=== PATIENT | male | born 1955 | race African-American/Black ===

== ENCOUNTER 2020-12-29 16:32 | Inpatient (IN) | payer BC, MEDICARE ==
[~2020-12-29] VITALS: Ht 167.6 cm; Wt 67.6 kg
[2020-12-29 18:35] LABS: HEMATOCRIT. 38.6 % (42.0-52.0); MEAN CORPUSCULAR HEMOGLOBIN 27.9 pg (28.0-32.0); MEAN CORPUSCULAR VOLUME 82.5 fL (80.0-94.0); MEAN PLATELET VOLUME 9.3 fl (7.4-10.4); PLATELET 146 x1000/uL (130-400); RED BLOOD CELL COUNT 4.68 mill/uL (4.7-6.1); RED CELL DISTRIBUTION WIDTH 14.7 % (11.6-14.6)
[2020-12-29 18:40] LABS: CLARITY URINE CLEAR (CLEAR); COLOR URINE YELLOW (YELLOW); KETONES URINE NEGATIVE (NEGATIVE); LEUKOCYTE ESTERASE URINE NEGATIVE (NEGATIVE); NITRITE URINE NEGATIVE (NEGATIVE); OCCULT BLOOD URINE 2+ (NEGATIVE); PH URINE 5.5 (4.5-8.0); PROTEIN URINE 1+ (NEGATIVE); SPECIFIC GRAVITY URINE 1.017 (1.005-1.030)
[2020-12-29 18:43] LABS: CHLORIDE 105 mEq/L (98-107)
[2020-12-29 18:47] LABS: ETHANOL BLOOD < 10 mg/dL
[2020-12-29 18:53] LABS: *AMPHETAMINES SCREEN URINE NEGATIVE (NEGATIVE); *BENZODIAZEPINES SCREEN URINE NEGATIVE (NEGATIVE); *COCAINE SCREEN URINE NEGATIVE (NEGATIVE); METHADONE URINE SCREEN NEGATIVE (NEGATIVE); OPIATES URINE SCREEN NEGATIVE (NEGATIVE); PHENCYCLIDINE URINE SCREEN NEGATIVE (NEGATIVE)
[2020-12-29 19:04] LABS: CANNABINOID URINE SCREEN NEGATIVE (NEGATIVE)
[2020-12-29 19:05] LABS: *BARBITURATES SCREEN URINE NEGATIVE (NEGATIVE)
[2020-12-29] MEDS ORDERED: AZITHROMYCIN 500 MG in DEXT 5% WATER 250 ML IV ONE (20:00)
[2020-12-29] MEDS ORDERED: CEFTRIAXONE 1 G PREMIX 50 ML IV ONE (20:00)
[2020-12-29 20:49] LABS: PLATELET ESTIMATE NORMAL
[2020-12-30] MEDS: HYDRALAZINE 20MG/ML VIAL IV PRN ×2 (00:46→06:17)
[2020-12-30 06:10] VITALS: BP 187/97
[2020-12-30 07:59] VITALS: BP 139/72
[2020-12-30] MEDS ORDERED: AMLODIPINE 5MG TABLET PO NR (09:15)
[2020-12-30] MEDS ORDERED: CEFTRIAXONE 1 G PREMIX 50 ML IV SCH (09:15)
[2020-12-30] MEDS: ENOXAPARIN 40MG/0.4ML SYR SUBCUT SCH (10:20)
[2020-12-30 11:10] VITALS: BP 159/84
[2020-12-30] MEDS: CEFTRIAXONE 1,000 MG in DEXTROSE 5% WATER 50 ML IV SCH (15:39)
[2020-12-30] MEDS: AZITHROMYCIN 500 MG in DEXT 5% WATER 250 ML IV SCH (15:39)
[2020-12-30 15:45] VITALS: BP 139/79
[2020-12-30 20:00] VITALS: BP 171/99
[2020-12-30] MEDS: AMLODIPINE 10MG TABLET PO SCH (22:47)
[2020-12-30] MEDS: LISINOPRIL 10MG TABLET PO SCH (22:47)
[2020-12-30] MEDS: ACETAMINOPHEN 650MG/20.3ML UDC PO PRN (22:49)
[2020-12-31] VITALS: BP 132/68
[2020-12-31 04:30] VITALS: BP 145/87
[2020-12-31 08:00] VITALS: BP 151/83
[2020-12-31] MEDS: LISINOPRIL 10MG TABLET PO SCH (09:18)
[2020-12-31] MEDS: AMLODIPINE 10MG TABLET PO SCH (09:18)
[2020-12-31] MEDS: ENOXAPARIN 40MG/0.4ML SYR SUBCUT SCH (09:19)
[2020-12-31 12:17] VITALS: BP 147/72
[2020-12-31] MEDS: CEFTRIAXONE 1,000 MG in DEXTROSE 5% WATER 50 ML IV SCH (13:55)
[2020-12-31] MEDS: AZITHROMYCIN 500 MG in DEXT 5% WATER 250 ML IV SCH (13:55)
[2020-12-31 16:00] VITALS: BP 173/102
[2020-12-31] MEDS: ACETAMINOPHEN 650MG/20.3ML UDC PO PRN (16:32)
[2020-12-31 17:44] LABS: BASOPHILS % 0.5 % (0.0-2.0); HEMATOCRIT. 42.6 % (42.0-52.0); HEMOGLOBIN. 14.3 g/dL (14.0-18.0); LYMPHOCYTES % 42.6 % (20.0-50.0); MEAN CORPUSCULAR HEMOGLOBIN 27.9 pg (28.0-32.0); MEAN CORPUSCULAR VOLUME 82.8 fL (80.0-94.0); MONOCYTES % 10.4 % (2.0-8.0); NEUTROPHILS % 43.5 % (40.0-76.0); PLATELET 142 x1000/uL (130-400); RED BLOOD CELL COUNT 5.14 mill/uL (4.7-6.1)
[2020-12-31] MEDS ORDERED: GADOTERATE MEGLUMINE 5 MMOL/10 ML VIAL IV ONE (17:51)
[2020-12-31 18:03] LABS: CHLORIDE 106 mEq/L (98-107)
[2020-12-31] MEDS: HYDROCHLOROTHIAZIDE 25MG TABLET PO SCH (18:46)
[2020-12-31 20:00] VITALS: BP 155/83
[2020-12-31] MEDS ORDERED: DIATR MEGLU/DIATRIZOATE SOLN 30ML PO SCH (22:45)
[2021-01-01] VITALS (12 sets, daily range): BP systolic 119–183; BP diastolic 59–96
[2021-01-01] MEDS: ACETAMINOPHEN 650MG/20.3ML UDC PO PRN (08:58)
[2021-01-01] MEDS: AZITHROMYCIN 500 MG TABLET PO SCH (08:59)
[2021-01-01] MEDS: LISINOPRIL 10MG TABLET PO SCH (08:59)
[2021-01-01] MEDS: SODIUM CHLORIDE 0.9% 1,000 ML IV SCH ×2 (08:59→17:45)
[2021-01-01] MEDS: AMLODIPINE 10MG TABLET PO SCH (08:59)
[2021-01-01] MEDS: HYDROCHLOROTHIAZIDE 25MG TABLET PO SCH (08:59)
[2021-01-01 09:16] LABS: HEMATOCRIT. 44.1 % (42.0-52.0); HEMOGLOBIN. 14.6 g/dL (14.0-18.0); MEAN CORPUSCULAR HEMOGLOBIN 27.8 pg (28.0-32.0); MEAN PLATELET VOLUME 9.2 fl (7.4-10.4); PLATELET 153 x1000/uL (130-400); RED BLOOD CELL COUNT 5.25 mill/uL (4.7-6.1); RED CELL DISTRIBUTION WIDTH 14.6 % (11.6-14.6)
[2021-01-01 09:22] LABS: CHLORIDE 105 mEq/L (98-107)
[2021-01-01] MEDS: HYDRALAZINE 20MG/ML VIAL IV PRN (09:55)
[2021-01-01] MEDS: CLONIDINE 0.1MG TABLET PO SCH ×2 (10:37→20:36)
[2021-01-01] MEDS ORDERED: POTASSIUM CHLORIDE INJ 40 MEQ in DEXT 5% WATER 250 ML IV ONE ×2 (11:00→13:00)
[2021-01-01] MEDS ORDERED: IOHEXOL-300 100 ML BOTTLE ONE (12:33)
[2021-01-01 13:15] LABS: PLATELET ESTIMATE NORMAL
[2021-01-01] MEDS: CEFTRIAXONE 1,000 MG in DEXTROSE 5% WATER 50 ML IV SCH (14:19)
[2021-01-01] MEDS ORDERED: POTASSIUM CHLORIDE 20MEQ TABLET SR PO NR (14:30)
[2021-01-01] MEDS ORDERED: LEVETIRACETAM 500 MG in SODIUM CHLORIDE 0.9% 100 ML IV SCH ×2 (15:45→22:00)
[2021-01-01] MEDS: DEXAMETHASONE 4MG/ML 1ML VIAL IV SCH ×2 (17:45→23:48)
[2021-01-01] MEDS: LEVETIRACETAM 500MG PREMIX 100 ML IV SCH (17:45)
[2021-01-01] MEDS ORDERED: DEXAMETHASONE 4MG/ML 1ML VIAL IV SCH (18:00)
[2021-01-02] VITALS (19 sets, daily range): BP systolic 112–149; BP diastolic 66–85
[2021-01-02] MEDS: SODIUM CHLORIDE 0.9% 1,000 ML IV SCH ×2 (05:20→17:44)
[2021-01-02] MEDS: LEVETIRACETAM 500MG PREMIX 100 ML IV SCH ×2 (05:59→18:24)
[2021-01-02] MEDS: DEXAMETHASONE 4MG/ML 1ML VIAL IV SCH ×4 (05:59→23:26)
[2021-01-02] MEDS: AMLODIPINE 10MG TABLET PO SCH (09:08)
[2021-01-02] MEDS: CLONIDINE 0.1MG TABLET PO SCH (09:09)
[2021-01-02] MEDS: LISINOPRIL 10MG TABLET PO SCH (09:09)
[2021-01-02] MEDS: HYDROCHLOROTHIAZIDE 25MG TABLET PO SCH (09:09)
[2021-01-02] MEDS: AZITHROMYCIN 500 MG TABLET PO SCH (09:09)
[2021-01-02 12:38] LABS: HEMATOCRIT 43.9 % (42.0-52.0); HEMOGLOBIN 14.6 g/dL (14.0-18.0); MEAN CORPUSCULAR HEMOGLOBIN 27.4 pg (28.0-32.0); MEAN CORPUSCULAR VOLUME 82.3 fL (80.0-94.0); PLATELET 180 x1000/uL (130-400); RED BLOOD CELL COUNT 5.34 mill/uL (4.7-6.1); RED CELL DISTRIBUTION WIDTH 14.8 % (11.6-14.6)
[2021-01-02 12:48] LABS: CHLORIDE 109 mEq/L (98-107)
[2021-01-02] MEDS: CEFTRIAXONE 1,000 MG in DEXTROSE 5% WATER 50 ML IV SCH (14:00)
[2021-01-03] VITALS (16 sets, daily range): BP systolic 122–167; BP diastolic 62–137
[2021-01-03] MEDS: SODIUM CHLORIDE 0.9% 1,000 ML IV SCH ×2 (05:28→11:11)
[2021-01-03] MEDS: DEXAMETHASONE 4MG/ML 1ML VIAL IV SCH ×2 (05:28→11:11)
[2021-01-03] MEDS: HYDRALAZINE 20MG/ML VIAL IV PRN ×2 (05:50→13:14)
[2021-01-03] MEDS ORDERED: LEVETIRACETAM 500MG TABLET PO SCH (09:00)
[2021-01-03] MEDS: AMLODIPINE 10MG TABLET PO SCH (09:04)
[2021-01-03] MEDS: LISINOPRIL 10MG TABLET PO SCH (09:04)
[2021-01-03] MEDS: HYDROCHLOROTHIAZIDE 25MG TABLET PO SCH (09:04)
[2021-01-03] MEDS ORDERED: LISINOPRIL 10MG TABLET PO SCH (11:00)
[2021-01-03 11:09] LABS: INR 1.1; PROTHROMBIN TIME 12.2 sec (9.6-11.0)
[2021-01-03] MEDS ORDERED: LISINOPRIL 20MG TABLET PO SCH (21:00)
[2021-01-04 09:09] LABS: IMMUNOGLOBULIN A 327 mg/dL (61-437); IMMUNOGLOBULIN G 1619 mg/dL (603-1613); IMMUNOGLOBULIN M 3204 mg/dL (20-172)
== END 2021-01-03 15:00 | disposition left against medical advice (07) | DRG 193 ==
LOC: ER 16:32 → MICUSO 22:10 → EDBEDREQTM 22:14 → EDBEDREQ 22:14 → 6WST 12-30 03:48 → 3WST 01-01 11:15 → MICUNO 01-02 11:32
PROVIDERS: ADMIT Internal Medicine; ATTEND Internal Medicine
DX: J18.9 Pneumonia, unspecified organism (principal); G82.50 Quadriplegia, unspecified; J44.0 Chronic obstructive pulmonary disease with (acute) lower respiratory infection; C79.31 Secondary malignant neoplasm of brain; G91.9 Hydrocephalus, unspecified; I16.0 Hypertensive urgency; G93.9 Disorder of brain, unspecified; R53.81 Other malaise; D64.9 Anemia, unspecified; I10 Essential (primary) hypertension; F17.200 Nicotine dependence, unspecified, uncomplicated; Z20.822 Contact with and (suspected) exposure to COVID-19; D72.819 Decreased white blood cell count, unspecified; F03.90 Unspecified dementia, unspecified severity, without behavioral disturbance, psychotic disturbance, mood disturbance, and anxiety; Z53.29 Procedure and treatment not carried out because of patient's decision for other reasons; I25.10 Atherosclerotic heart disease of native coronary artery without angina pectoris; M48.02 Spinal stenosis, cervical region; M48.061 Spinal stenosis, lumbar region without neurogenic claudication; M19.90 Unspecified osteoarthritis, unspecified site; Z86.73 Personal history of transient ischemic attack (TIA), and cerebral infarction without residual deficits; Z82.49 Family history of ischemic heart disease and other diseases of the circulatory system
CPT/HCPCS: 36415; 70553; 71045; 71260; 72141; 72148; 74177; 80048; 80053; 80305; 80320; 81003; 82378; 82784; 83605; 83880; 84145; 84484; 85025; 85027; 86334; 86850; 86900; 87426; 93005; 93306; 97162; 99285; A9577; J0360; J0456; J0696; J1100; J1650; J1953; J3480; J7030; J7040; J7060; Q9967; G0480